=== PATIENT | male | born 1955 | race Caucasian/White ===

== ENCOUNTER 2017-09-13 08:38 | Day surgery (SDC) | payer BC ==
[2017-09-13] MEDS ORDERED: Lactated Ringers 1,000 ML IV SCH (08:45)
[2017-09-13] MEDS ORDERED: Ondansetron 4 MG/2 ML SDV IVPUSH ONE (09:45)
[2017-09-13] MEDS ORDERED: Ketamine 500 mg/10 ML MDV IV ONE (09:45)
[2017-09-13] MEDS ORDERED: Midazolam 1 MG/ML 2 ML SDV IV ONE (09:45)
[2017-09-13] MEDS ORDERED: Ketorolac 30 MG/ML SDV IVPUSH ONE (09:45)
[2017-09-13] MEDS ORDERED: Propofol 200 MG/20 ML SDV IV ONE (09:45)
--- NOTE | 2017-09-13 09:45 | PCM.HPR ---
H & P Addendum review - H & P Addendum Review Date of Original H & P: 09/12/17 Date Reviewed: 09/13/17 Time Reviewed: 09:30 Patient was Examined: No Changes
[2017-09-13] MEDS ORDERED: Lidocaine 1% with EPINEPHrine 1:100,000 20 ML MDV INFILT ONE (09:58)
[2017-09-13] MEDS ORDERED: Bupivacaine 0.25% 30 ML SDV INFILT ONE (09:58)
[2017-09-13] MEDS ORDERED: ceFAZolin 2 GM in Premix Bag 1 BAG IV ONE (10:00)
--- NOTE | 2017-09-13 10:31 | PCM.OPNOTE ---
- General Post-Op/Procedure Note Date of Surgery/Procedure: 09/13/17 Operative Procedure(s): Umbilical Hernia repair Findings: Umb hernia 1.5 cm Pre Op Diagnosis: Umb hernia Post-Op Diagnosis: Same Anesthesia Technique: Local, MAC Primary Surgeon: Berto ABBOTT in mLs: 2 Complications: None Condition: Good
--- NOTE | 2017-09-13 17:45 | OR ---
DATE OF OPERATION: 09/13/2017 SURGEON: Berto Ojeda MD PREOPERATIVE DIAGNOSIS: Umbilical hernia. POSTOPERATIVE DIAGNOSIS: Umbilical hernia. PROCEDURE PERFORMED: Repair of umbilical hernia. ANESTHESIA: Local with IV sedation. PROCEDURE IN DETAIL: The patient was brought to the procedure room, where he was placed on his left side and to the operating room, where he was placed in the supine position and IV sedation administered. The abdomen was clipped, prepped with ChloraPrep and draped sterilely. A 50:50 mixture of 1% lidocaine with epinephrine and 0.25% Marcaine was infiltrated around the periumbilical skin and fascia. The infraumbilical incision was made and the umbilical skin dissected off the hernia. This contained preperitoneal fat that was reduced. Fascial edges were cleared circumferentially. Fascia appears healthy and primary closure was felt appropriate with a 1.5 cm defect. Edges reapproximated with minimal tension. This was done using #0 Prolene in a far-near and near-far fashion. The wound was irrigated and the skin secured to the fascia with 3-0 Vicryl. Skin was closed with a running 4-0 Vicryl subcuticular suture. Benzoin and Steri-Strips were placed and a sterile dressing applied. The patient tolerated the procedure well. ESTIMATED BLOOD LOSS: 2 mL. He returned to postanesthesia in stable condition. /[id number] NEERAJ/ELENO
== END 2017-09-13 11:50 | disposition home or self-care (01) ==
LOC: FB.SDS 08:38
PROVIDERS: ATTEND Surgery
DX: K42.9 Umbilical hernia without obstruction or gangrene (principal); I10 Essential (primary) hypertension; E78.5 Hyperlipidemia, unspecified; J45.909 Unspecified asthma, uncomplicated
CPT/HCPCS: J0690; J1885; J2250; J2405; J2704; J3490; J7120